=== PATIENT | male | born 1990 | race Two or more races ===

== ENCOUNTER 2025-02-05 16:13 | Emergency (ER) | payer OTHER ==
[~2025-02-05] VITALS: Ht 175.3 cm; Wt 102.3 kg
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
[2025-02-05 16:51] VITALS: BP 145/97; PULSE 76; RESP 13; TEMP 98.5; O2SAT 98
== END 2025-02-05 16:54 | disposition home or self-care (01) ==
LOC: ER 16:13
DX: R03.0 Elevated blood-pressure reading, without diagnosis of hypertension (principal); F41.9 Anxiety disorder, unspecified